=== PATIENT | female | born 1975 | race Caucasian/White ===

== ENCOUNTER 2021-03-30 20:54 | Emergency (ER) | payer OTHER ==
[~2021-03-30 20:54] MED LIST: BENTYL10 MG PO; ZOFRAN8 MG PO
[2021-03-30] MEDS ORDERED: AMOXICILLIN875 MG PO (22:29)
== END 2021-03-30 22:38 | disposition home or self-care (01) ==
LOC: FER 20:54
DX: S51.811A Laceration without foreign body of right forearm, initial encounter (principal); S61.431A Puncture wound without foreign body of right hand, initial encounter; Z88.5 Allergy status to narcotic agent; W54.0XXA Bitten by dog, initial encounter; Y92.009 Unspecified place in unspecified non-institutional (private) residence as the place of occurrence of the external cause
CPT/HCPCS: 73090; 73130